=== PATIENT | female | born 1980 | race African-American/Black ===

== ENCOUNTER 2017-04-19 14:40 | Emergency (ER) | payer OTHER ==
[~2017-04-19] VITALS: Ht 157.5 cm; Wt 87.2 kg
[~2017-04-19 14:40] MED LIST: KEFLEX500 MG PO; PRILOSEC10 MG PO; ZOFRAN4 MG PO
[2017-04-19 15:26] LABS: ADD MIUA? NO; BILIRUBIN NEGATIVE; BLOOD NEGATIVE; COLOR STRAW ((YELLOW)); GLUCOSE (STRIP) NEGATIVE; KETONES NEGATIVE; LEUKOCYTES NEGATIVE; NITRITE NEGATIVE; PROTEIN (STRIP) NEGATIVE; SPECIFIC GRAVITY 1.004 (1.000-1.030); UROBILINOGEN 0.2 MG/DL (0.2-1.0)
[2017-04-19 15:42] LABS: EOSINOPHIL (%) 0.9 % (0-5); EOSINOPHIL COUNT 0.1 K/uL (0-0.3); HEMATOCRIT 31.6 % (36.0-46.0); IMMATURE GRANULOCYTE (%) 1.5 % (0.0-0.7); IMMATURE GRANULOCYTE COUNT 0.2 K/uL; LYMPHOCYTE COUNT 2.8 K/uL (1.0-2.8); MCH 21.1 PG (29.0-34.0); MEAN PLAT.VOLUME 9.5 uM^3 (9.5-12.4); MONOCYTE (%) 5.9 % (3-12); MONOCYTE COUNT 0.7 K/uL (0-0.8); NEUTROPHIL (%) 68.1 % (45-76); PLATELET COUNT 402 K/uL (156-360); RBC DIS.WIDTH-SD 39.3 % (39-53); RED BLOOD COUNT 4.79 M/uL (3.80-5.20); WHITE BLOOD COUNT 11.8 K/uL (4.1-10.2)
[2017-04-19 15:47] LABS: CHLORIDE 109 mEq/L (99-109); POTASSIUM 3.4 mEq/L (3.7-5.4); SODIUM 136 mEq/L (136-147)
[2017-04-19 15:49] LABS: GLUCOSE 109 mg/dL (70-99)
[2017-04-19 15:50] LABS: ANION GAP 7 MEQ/L (2-14)
[2017-04-19 15:51] LABS: TOTAL BILIRUBIN 0.2 mg/dL (0.0-1.0)
[2017-04-19 15:52] LABS: ALKALINE PHOSPHATASE 73 IU/L (3-129)
[2017-04-19 15:53] LABS: GFR ESTIMATE (CALCULATED) > 59 mL/min/
[2017-04-19 15:54] LABS: UREA NITROGEN (BUN) 6 mg/dL (9-23)
[2017-04-19 15:56] LABS: LIPASE 8 U/L (1.0-51.0)
[2017-04-19 18:01] VITALS: BP 91/63
[2017-04-19] MEDS ORDERED: TYLENOL WITH C1 EACH PO (18:09)
== END 2017-04-19 18:23 | disposition home or self-care (01) ==
LOC: EME 14:40
PROVIDERS: Emergency Medicine
DX: O99.89 Other specified diseases and conditions complicating pregnancy, childbirth and the puerperium (principal); R10.32 Left lower quadrant pain; Z3A.21 21 weeks gestation of pregnancy; Z87.891 Personal history of nicotine dependence
CPT/HCPCS: 76805; 80053; 81003; 83690; 84702; 85025; 99281; 99284; J2270; J2405

== ENCOUNTER 2017-07-15 16:01 | Outpatient (CLI) | payer OTHER ==
[~2017-07-15] VITALS: Ht 157.5 cm; Wt 88.0 kg
[~2017-07-15 16:01] MED LIST changes: +TYLENOL WITH C1 EACH PO
[2017-07-15 16:15] VITALS: BP 116/61
[2017-07-15] MEDS ORDERED: PRENATAL TABLE1 EAC3 PO (16:31)
== END 2017-07-15 17:59 | disposition home or self-care (01) ==
LOC: LDRP-OP 16:01 → 2WEST 16:02 → LDRP-OP 09-30 07:17
DX: O47.03 False labor before 37 completed weeks of gestation, third trimester (principal); O24.813 Other pre-existing diabetes mellitus in pregnancy, third trimester; Z3A.33 33 weeks gestation of pregnancy; O99.013 Anemia complicating pregnancy, third trimester; D64.9 Anemia, unspecified
CPT/HCPCS: 59025; G0378; J3105

== ENCOUNTER 2017-08-09 09:46 | Outpatient (CLI) | payer OTHER ==
[~2017-08-09] VITALS: Ht 162.6 cm; Wt 82.6 kg
[~2017-08-09 09:46] MED LIST changes: +PRENATAL TABLE1 EAC3 PO
[2017-08-09 10:09] VITALS: BP 119/68
[2017-08-09 11:38] VITALS: BP 102/55
[2017-08-09 13:15] VITALS: BP 113/59
== END 2017-08-09 14:30 | disposition home or self-care (01) ==
LOC: LDRP-OP 09:46 → 2WEST 09:48 → LDRP-OP 09-30 18:15
DX: O60.03 Preterm labor without delivery, third trimester (principal); Z3A.36 36 weeks gestation of pregnancy; O24.410 Gestational diabetes mellitus in pregnancy, diet controlled
CPT/HCPCS: 59025; G0378